=== PATIENT | female | born 2005 | race African-American/Black ===

== ENCOUNTER 2024-11-27 16:28 | Emergency (ER) | payer SELFPAY ==
[2024-11-27 16:35] VITALS: BP 141/98
[2024-11-27 16:54] VITALS: BMI 36.3
--- NOTE | 2024-11-27 18:02 | ED.GENMED ---
History of Present Illness
General
Chief Complaint: Crisis Evaluation
Source: patient
Exam Limitations: none
Time Seen by Provider: 11/27/24 17:07
Nursing documentation reviewed up to this point in time: agreed with
History of Present Illness
History of Present Illness:
19-year-old female college student from [place] history of OCD Tourette's on meds came in requesting some outpatient resources for therapist, has been cutting at her self, feeling depressed no drugs or alcohol she is anxious about graduating from
college, she has a biology internship in the [employer]
Phy Exam
Physical Exam
Physical Exam:
Physical Exam
General: no apparent distress, not acutely ill
Neck: No jaundice
Heart: Regular
Lungs: no acute respiratory distress. clear bilaterally
Neuro: alert and oriented. no focal neurological deficits
Skin: no rash
Psychiatric: Cooperative not hallucinating not suicidal
Extremities: no edema.
Course
Orders/Labs/Results
Orders:
Orders
11/27/24 16:29
1:1 Observation - Suicide/ Violent Behavior As Directed
Crisis Consult Urgent
Reason for Consult: suicidal ideations
Vital Signs
Initial and Last Documented VS:
Initial Vital Signs
Temp Pulse Resp BP Pulse Ox
98.5 F 111 18 141/98 98
11/27/24 16:35 11/27/24 16:35 11/27/24 16:35 11/27/24 16:35 11/27/24 16:35
Last Documented Vital Signs
Temp Pulse Resp BP Pulse Ox
98.5 F 111 18 141/98 98
11/27/24 16:35 11/27/24 16:35 11/27/24 16:35 11/27/24 16:35 11/27/24 16:35
*Critical Care Note
Total Time (30-74mins, 75-104mins- exclusive of procedures): Not Applicable
Update Note
Update Note:
6 PM, I did review the case with tin worker, outpatient resources provided for the patient which she was very appreciative for
ED Attending Note
-
Portions of this chart may have been created with voice recognition software.� Occasional wrong word or��sound alike� substitutions may have occurred due to the inherent limitations of voice recognition software.
Discharge Plan
Departure
Patient Disposition: Home (Routine Discharge)
Date of Disposition: 11/27/24
Time of Disposition: 17:58
Patient with high blood pressure during this ER visit?: No
Condition: Good
Discharge Problem:
Anxiety
Instructions: Anxiety, Adult (DC)
Activity Restrictions/Additional Instructions:
Follow-up with the resources given to you
Interventions
Interventions:
*Risk Screen - Suicide Last Done: 11/27/24 16:35
*General Assessment Last Done: 11/27/24 16:35
*Neglect/Abuse Screening Last Done: 11/27/24 16:35
*ED- Fall Risk Assessment Last Done: 11/27/24 16:35
*ED COVID-19 Vaccine History Last Done: 11/27/24 16:35
ED-Psychological Assessment Last Done: 11/27/24 16:55
Discharge Date and Time
Print Language: ZAMBIAN
== END 2024-11-27 18:29 | disposition home or self-care (01) ==
LOC: EMR 16:28
PROVIDERS: EMERGENCY PHYSICIAN Emergency Medicine
DX: F41.9 Anxiety disorder, unspecified (principal); F32.A Depression, unspecified; R45.851 Suicidal ideations; F42.9 Obsessive-compulsive disorder, unspecified; F95.2 Tourette's disorder; Z91.52 Personal history of nonsuicidal self-harm
CPT/HCPCS: 99283